=== PATIENT | male | born 1955 | race Caucasian/White ===

== ENCOUNTER → 2017-08-31 | Outpatient (CLI) | payer OTHER ==
--- NOTE | 2017-08-31 16:11 | PCVCIMAG ---
APPROVED REPORT Exam: Stress Echocardiogram Indication: Hyperlipidemia, elevated calcium score, family hx of cad Patient Location: Echo lab Stress Nurse: Pearl Bowen RN Status: routine Ht: 5 ft 9 in HR: 69 bpm BP: 130/80 mmHg Rhythm: NSR Medical History Medical History: Hyperlipidemia, Family history CAD Cardiac Risk Factors: Hyperlipidemia Exercise History: Physically active Procedure The patient underwent an Exercise Stress Test using the Ej Protocol. Blood pressure, heart rate, and EKG were monitored. An Echocardiogram was performed by railway signal technician in four stages in quad fashion. At peak stress, four selected images were obtained and placed side by side with resting images for comparison. Stress Test Details Stress Test: Exercise stress testing was performed using a Ej protocol. HR Resting HR: 69 bpmMax Heart Rate (APMHR): 158 bpm Max HR Achieved: 181 bpmTarget HR (85% APMHR): 134 bpm % of APMHR: 114 HR response to stress: Normal HR response to stress BP Resting BP: 130/80 mmHg Max BP: 180/70 mmHg ECG Resting ECG: Sinus Rhythm Stress ECG: Sinus Rhythm Maximum ST Deviation: 0 mm Arrhythmia: APC's Recovery ECG: Sinus Rhythm Recovery ST Change: Normal Recovery ST Deviation: 0 mm Recovery Arrhythmia: None Clinical Reason for Termination: Maximal effort Exercise duration: 15 min 49 sec Highest Stage Achieved: Stage 6: 5.5 mph at 20% grade. Exercise capacity: 19.70 METs Overall Exercise Capacity for Age: Excellent Angina Score: None Stress ECG Conclusion ECG: Non-ischemic Clinical: Non-ischemic Collins Treadmill Score is 15.0 which is Low risk. Pre-Stress Echo The resting Echocardiogram showed normal left ventricular contractility with an estimated Ejection Fraction of about 55-60%. Normal wall motion in all segments on baseline images. Post-Stress Echo The stress Echocardiogram showed normal left ventricular contractility with an estimated Ejection Fraction of about 60-65%. Normal augmentation of wall motion in all segments on post stress images. Clinical No clinical or ECG evidence for ischemia. Conclusion Clinical Response: Non-ischemic Exercise Capacity: Superior Stress ECG Response: Non-ischemic Stress Echo Images: Non-ischemic The left ventricle is normal in size and wall thickness in both the rest and stress images. Other Information Study Quality: Good <Conclusion> The left ventricle is normal in size and wall thickness in both the rest and stress images.
== END | disposition home or self-care (01) ==
LOC: PCVCIMAG 09:30
PROVIDERS: ATTEND Internal Medicine
DX: I65.23 Occlusion and stenosis of bilateral carotid arteries (principal); E78.5 Hyperlipidemia, unspecified; E83.59 Other disorders of calcium metabolism; Z82.49 Family history of ischemic heart disease and other diseases of the circulatory system
CPT/HCPCS: 93325; 93351; 93880